=== PATIENT | female | born 1965 | race Caucasian/White ===

== ENCOUNTER 2017-06-16 09:53 | Emergency (ER) | payer SELFPAY ==
[2017-06-16] MEDS ORDERED: Diazepam 5 MG TAB ONE (10:50)
== END 2017-06-16 11:10 | disposition home or self-care (01) ==
LOC: MADERS 09:53
DX: Z76.0 Encounter for issue of repeat prescription (principal); M25.532 Pain in left wrist; M54.9 Dorsalgia, unspecified; M25.519 Pain in unspecified shoulder; F17.210 Nicotine dependence, cigarettes, uncomplicated; Z79.891 Long term (current) use of opiate analgesic; Z79.899 Other long term (current) drug therapy
CPT/HCPCS: 96372; J2270